=== PATIENT | male | born 1960 | race Two or more races ===

== ENCOUNTER 2018-04-04 07:23 | Outpatient (CLI) | payer OTHER | END 2018-04-04 09:28 | disposition home or self-care (01) | LOC: NUCLEAR 07:23 | DX: I20.0 Unstable angina (principal); E78.2 Mixed hyperlipidemia; I11.9 Hypertensive heart disease without heart failure | CPT/HCPCS: 78452; 93017; A9500 ==

== ENCOUNTER 2018-04-08 15:22 | Outpatient (CLI) | payer OTHER | END 2018-04-08 15:32 | disposition home or self-care (01) | LOC: LAB 15:22 | DX: R10.13 Epigastric pain (principal); Z51.81 Encounter for therapeutic drug level monitoring ==

== ENCOUNTER 2018-04-09 08:47 | Outpatient (CLI) | payer OTHER | END 2018-04-09 18:53 | disposition home or self-care (01) | LOC: TOM 08:47 | DX: R10.13 Epigastric pain (principal); R10.33 Periumbilical pain ==